=== PATIENT | female | born 1975 | race Caucasian/White ===

== ENCOUNTER 2021-01-23 11:04 | Outpatient (CLI) | payer OTHER ==
--- NOTE | 2021-01-26 13:45 | Ultrasound Report ---
LIMITED ULTRASOUND OF RIGHT BREAST AND AXILLA: 01/23/2021 CLINICAL: Focal right breast pain. Comparison is made to exams dated: 01/23/2021 mammogram - [facility], 12/02/2014 mamm ogram, and 08/20/2013 mammogram - [facility]. Color flow and real-time ultrasound of the right breast 9 o'clock, and axilla regions were performed. Young scale images of the real-time examination were reviewed. There are multiple benign oval cysts with smooth internal felix in the right breast superior lateral quadrant middle depth. These oval cysts are anechoic and hypoechoic with posterior acoustic enhancem ent. These correlate as palpated and with mammography findings. Sonographic artifacts are seen sup erimposed on the cysts. Some internal debris may be present. No significant abnormalities were seen sonographically in the right axilla. IMPRESSION: BENIGN There is no sonographic evidence of malignancy. The multiple oval cysts in the right breast are benign. The patient may elect to have the cyst aspir ated if desired for symptomatic relief. A 1 year screening mammogram is recommended. This exam was interpreted at Station ID: [id number]. Electronically Signed By: Antonio salinas/cody:01/23/2021 13:57:17 Ultrasound BI-RADS: 2 Benign BI-RADS CATEGORY: (2) - 2 RECOMMENDATION: (ANNUAL) - Recommend routine annual screening mammography. [id number] 1 year screening LATERALITY: (B)
--- NOTE | 2021-01-26 13:45 | Mammography Report ---
BILATERAL DIGITAL DIAGNOSTIC MAMMOGRAM 3D/2D: 01/23/2021 CLINICAL: Palpable right breast lump. Comparison is made to exams dated: 12/02/2014 mammogram, 08/20/2013 mammogram, and 05/23/2012 mammogram - [facility]. The tissue of both breasts is heterogeneously dense. This may lower the sensitiv ity of mammography. There is a 2.5 cm oval mass with a circumscribed margin in the right breast at 12 o'clock middle dept h. This correlates as palpated. Multiple additional benign circumscribed masses are seen in each b reast. No other significant masses, calcifications, or other findings are seen in either breast. IMPRESSION: INCOMPLETE: NEEDS ADDITIONAL IMAGING EVALUATION The 2.5 cm oval mass in the right breast resembles a cyst and is indeterminate. An ultrasound is rec ommended. This exam was interpreted at Station ID: [id number]. NOTE: For mammograms, a report in lay terms will be sent to the patient. Approximately 15% of breast malignancies will not be visualized mammographically. In the management of a palpable breast mass, a negative mammogram must not discourage biopsy of a clinically suspicious lesion. Electronically Signed By: Antonio salinas/cody:01/23/2021 13:37:47 ACR BI-RADS Category 0: Incomplete 3340F PARENCHYMAL PATTERN: (D) - The breast(s) demonstrate(s) heterogeneously dense fibroglandular [place]. BI-RADS CATEGORY: (0) - 0 Ultrasound [id number] Immediate follow-up LATERALITY: (R)
== END 2021-01-23 11:05 | disposition home or self-care (01) ==
LOC: DI 11:04
PROVIDERS: ATTEND Student in an Organized Health Care Education/Training Program
DX: N60.11 Diffuse cystic mastopathy of right breast (principal)

== ENCOUNTER 2021-02-11 13:29 | Outpatient (CLI) | payer OTHER ==
[~2021-02-11 13:29] MED LIST: BUFFERED LIDOCAINE 10 ML SYRINGE ONE
[2021-02-11] MEDS: BUFFERED LIDOCAINE 10 ML SYRINGE IU ONE (16:30)
--- NOTE | 2021-02-16 08:15 | Ultrasound Report ---
MULTIPLE ASPIRATIONS RIGHT BREAST: 02/11/2021 CLINICAL: Cyst aspiration right breast. Correlation is made to exams dated: 01/23/2021 ultrasound, 01/23/2021 mammogram - [facility], 12/02/2014 mammogram, 08/20/2013 mammogram, 05/23/2012 mammogram, and 06/22/2011 mammogram - [facility]. An aspiration was performed for the painful cyst located in the right breast at 10 o'clock middle dep th. This was described on the previous ultrasound report. The skin was prepped in the usual manner. Local anesthetic was administered to the access site. The abnormality was approached from the late ral aspect. A 20 gauge needle was percutaneously placed into the abnormality under guidance. Once t he needle was documented to be in the correct location, opaque brown fluid was aspirated. A skin adh esive was applied to the access site. The aspirated fluid was discarded. A second aspiration was performed for the painful cyst located in the right breast at 9 o'clock middl e depth. This was described on the previous ultrasound report. The skin was prepped in the usual ma nner. Local anesthetic was administered to the access site. The abnormality was approached from the craniocaudal aspect. A 20 gauge needle was percutaneously placed into the abnormality under guidanc e. Once the needle was documented to be in the correct location, opaque white fluid was aspirated. A skin adhesive was applied to the access site. The aspirated fluid was discarded. IMPRESSION: ASPIRATION Aspiration of the cyst in the right breast at 10 o'clock middle depth was successful with no apparent post procedure complications. Aspiration of the cyst in the right breast at 9 o'clock middle depth was successful with no apparent post procedure complications. Future imaging is recommended as follows: 01/24/2022 screening mammogram. This exam was interpreted at Station ID: [id number]. Kj Campbell jl/:02/15/2021 16:37:42 BI-RADS CATEGORY: () - Unspecified - other recall n/a LATERALITY: (B)
== END 2021-02-11 13:30 | disposition home or self-care (01) ==
LOC: DI 13:29
PROVIDERS: ATTEND Student in an Organized Health Care Education/Training Program
DX: R92.8 Other abnormal and inconclusive findings on diagnostic imaging of breast (principal)
CPT/HCPCS: 19000

== ENCOUNTER 2021-08-20 08:53 | Emergency (ER) | payer OTHER ==
[2021-08-20] MEDS ORDERED: ONDANSETRON 4 MG/2 ML VIAL IVP STA (09:02)
[2021-08-20] MEDS ORDERED: SODIUM CHLORIDE 0.9% 1,000 ML IV STA ×2 (09:02→10:52)
[2021-08-20] MEDS ORDERED: DROPERIDOL 5 MG/2 ML VIAL IVP STA (09:41)
[2021-08-20] MEDS ORDERED: PANTOPRAZOLE 40 MG VIAL IVP STA (09:41)
[2021-08-20] MEDS ORDERED: KETOROLAC 15 MG/ML VIAL IVP STA (09:41)
--- NOTE | 2021-08-20 09:45 | ED Physician Documentation ---
History of Present Illness - Stated complaint Stated Complaint: N/V, DIZZINESS - Chief complaint Chief Complaint: Abd Pain - History obtained from History obtained from: Patient - Additonal information Additional information: Patient comes to the emergency department with chief complaint of vomiting for the last 4 days. She states she started to feel nauseated on the first day and could not eat much, but did not have any abdominal pain. She denies any changes in her stool, either toward constipation or diarrhea. The patient states that the next day, she was very nauseated and could not hold anything down and that the nausea is continued until now, she is just having dry heaves. She states she still cannot hold even clear liquids down. She states her urine was dark yellow and she has had headache for the last couple of days and finally decided to come to the emergency department to get checked out. The patient has a history of migraines but states this feels different, just like pressure from a vice long chain beamer on her head. No neurologic symptoms. Patient denies any fevers or chills. She has not been exposed to anybody known to be sick. The patient states that her muscles feel sore in her abdomen and chest from vomiting, but she denies any specific actual "pain" in either her chest or abdomen otherwise. No other complaints at this time. Review of Systems Ten Systems: 10 systems reviewed and negative Constitutional: reports: Reviewed and negative Eyes: reports: Reviewed and negative Ears: reports: Reviewed and negative Nose: reports: Reviewed and negative Throat: reports: Reviewed and negative Cardiac: reports: Reviewed and negative Respiratory: reports: Reviewed and negative GI: reports: Nausea, Vomiting : reports: Reviewed and negative Skin: reports: Reviewed and negative Musculoskeletal: reports: Reviewed and negative Neurologic: reports: Reviewed and negative Psychiatric: reports: Reviewed and negative Endocrine: reports: Reviewed and negative Immunocompromised: reports: Reviewed and negative PD PAST MEDICAL HISTORY - Past Medical History Musculoskeletal: Osteoporosis - Present Medications Home Medications: Ambulatory Orders Medication Instructions Recorded Confirmed Dexlansoprazole [Dexilant] 60 mg PO DAILY 05/09/15 05/09/15 Esomeprazole Magnesium [Nexium] 40 mg PO DAILY 05/09/15 05/09/15 Levonorgestrel-Ethin Estradiol 1 tab PO DAILY 05/09/15 05/09/15 [Levonor-Eth Estrad 0.15-0.03] Nitrofurantoin Monohyd/M-Cryst 100 mg PO BID #10 capsule 05/09/15 [Macrobid 100 mg Capsule] Oxycodone HCl/Acetaminophen 2 tab PO Q6HR 05/09/15 05/09/15 [Percocet 10-325 mg Tablet] diazePAM [Diazepam] 5 mg PO Q6HR 05/09/15 05/09/15 Ondansetron Odt [Zofran] 4 mg TL Q6H PRN #10 tablet 08/20/21 Promethazine Supp [Phenergan Supp] 25 mg SD Q6HR PRN #12 supp 08/20/21 - Allergies Allergies/Adverse Reactions: Allergies Allergy/AdvReac Type Severity Reaction Status Date / Time bupropion HCl * Allergy Intermediate Edema Verified 08/20/21 09:06 [From Wellbutrin] - Social History Does the pt smoke?: No Smoking Status: Never smoker PD ED PE NORMAL - Vitals Vital signs reviewed: Yes - General General: Alert and oriented X 3, Well developed/nourished, Other (The patient intermittently dry heaves and appears uncomfortable, but otherwise no apparent distress) - HEENT HEENT: Atraumatic, PERRL, EOMI, Moist mucous membranes - Cardiac Cardiac: RRR, No murmur, Strong equal pulses - Respiratory Respiratory: No respiratory distress, Clear bilaterally - Abdomen Abdomen: Soft, Non tender, Non distended - Back Back: No CVA TTP - Derm Derm: Normal color, Warm and dry, No rash - Extremities Extremities: No deformity, No edema - Neuro Neuro: Alert and oriented X 3, train station agent 2-12 intact, Normal speech, Other (Grossly intact) - Psych Psych: Normal mood, Normal affect Results - Vitals Vitals: Oxygen O2 Source Room air - Labs Labs: Laboratory Tests 08/20/21 08/20/21 08/20/21 09:50 09:50 09:50 WBC 5.0 RBC 4.35 Hgb 13.5 Hct 41.7 MCV 95.9 MCH 31.0 MCHC 32.4 RDW 13.2 Plt Count 161 MPV 8.6 Neut # (Auto) 3.5 Lymph # (Auto) 0.8 L Waldo # (Auto) 0.4 Eos # (Auto) 0.3 Baso # (Auto) 0.0 Absolute Nucleated RBC 0.00 Nucleated RBC % 0.0 Sodium 136 Potassium 4.0 Chloride 99 L Carbon Dioxide 28 Anion Gap 9.0 BUN 18 Creatinine 0.8 Estimated GFR (MDRD) 77 L Glucose 110 H Calcium 7.9 L Total Bilirubin 2.6 H AST 530 H ALT 1620 H Alkaline Phosphatase 62 Total Protein 6.2 L Albumin 3.3 Globulin 2.9 Albumin/Globulin Ratio 1.1 Lipase 46 TSH Hepatitis A IgM Ab NON-REACTIVE Hep Bs Antigen NON-REACTIVE Hep B Core IgM Ab NON-REACTIVE Hepatitis C Antibody NON-REACTIVE Hep C Ab Signal/Cutoff 0.00 08/20/21 09:50 WBC RBC Hgb Hct MCV MCH MCHC RDW Plt Count MPV Neut # (Auto) Lymph # (Auto) Waldo # (Auto) Eos # (Auto) Baso # (Auto) Absolute Nucleated RBC Nucleated RBC % Sodium Potassium Chloride Carbon Dioxide Anion Gap BUN Creatinine Estimated GFR (MDRD) Glucose Calcium Total Bilirubin AST ALT Alkaline Phosphatase Total Protein Albumin Globulin Albumin/Globulin Ratio Lipase TSH 0.55 Hepatitis A IgM Ab Hep Bs Antigen Hep B Core IgM Ab Hepatitis C Antibody Hep C Ab Signal/Cutoff PD MEDICAL DECISION MAKING - ED course Complexity details: reviewed results, re-evaluated patient, considered differential, d/w patient ED course: The patient was treated symptomatically with IV fluids and initially, and Zofran. The Zofran did seem to help, so the patient was given droperidol, a small dose of Toradol, and Protonix. She was worked up with laboratory studies. Her abdomen was benign, and so I did not initially feel that she needed to have imaging studies performed. The patient was found to have significantly elevated liver enzymes, so ultrasound was performed. This did not show any gallbladder pathology. CT scan was then performed of the abdomen and pelvis, and This also did not show any further pathology. The patient was feeling much better and I discussed with her that I am not sure exactly why her liver enzymes are elevated. I have added a hepatitis panel, which is pending at this time. The patient does not have an obstructive process, so at this point in time, I do not feel that an ERCP or MRCP would be helpful. I discussed the need for her to follow-up with her primary care physician. She may have hepatitis itself or she may have some other viral process that has created a transient, lower level hepatitis and transaminitis. We have discussed the need for follow-up regardless, and the usual indications for return to the emergency department, particularly if the patient becomes febrile or jaundiced. Departure - Departure Disposition: 01 Home, Self Care Clinical Impression: Transaminitis Vomiting Qualifiers: Vomiting type: bilious vomiting Nausea presence: with nausea Qualified Code(s): R11.14 - Bilious vomiting Condition: Stable Instructions: ED Nausea Vomiting Prescriptions: Promethazine Supp [Phenergan Supp] 25 mg SD Q6HR PRN #12 supp PRN Reason: Nausea / Vomiting Ondansetron Odt [Zofran] 4 mg TL Q6H PRN #10 tablet PRN Reason: Nausea / Vomiting Comments: Your labs looked okay except that your liver labs were significantly elevated today. Extensive imaging has been done to try to determine why this might be, and no evidence of a blockage of your gallbladder or bile ducts has been found. You do not have gallstones and your gallbladder is not inflamed, so there is no acute surgical intervention that needs to be done. Your liver has chronic cysts which showed up on CT over a decade ago, and these appear stable. There may be a mild amount of infiltration of fat anterior liver, which can sometimes indicate a low level of liver stress, but this is fairly mild. A hepatitis panel has been added to your blood work today, and is pending at this time. It will not be back right away, but your primary care physician can follow-up on this. It is possible that you have contracted a gastrointestinal virus that his inflamed your liver and this can sometimes happen. In general, this flareup of liver enzymes will be temporary and will subside, once the viral illness is passed. At this point, since there is no obstructive cause of your elevated liver enzymes that has been identified, it is most likely that the elevation is coming from an issue with the liver itself. As such, your liver enzymes will need to be rechecked in about a week. I have discussed her case with Dr. Quinteros, the social insurance specialist on-call for admitted patients in the hospital, and he has stated that there is no further testing that would be done on a hospital admission at this time. As such, we will allow you to go home with a couple of different nausea medications. You have been hydrated here in the emergency department and have responded well to the medication we have given you here. Please take the next several days off of work, and call first thing upon arriving home to make an appointment to follow-up with your primary care physician next week for reevaluation. If any of your symptoms worsen, or you begin to get significantly jaundiced (turning yellow), please return for further evaluation. Discharge Date/Time: 08/20/21 14:27
[2021-08-20 10:05] LABS: BASOPHILS % (AUTO) 0.4 %; EOSINOPHILS # (AUTO) 0.3 10^3/uL (0.0-0.7); EOSINOPHILS % (AUTO) 5.2 %; HCT - HEMATOCRIT 41.7 % (37.0-47.0); HGB - HEMOGLOBIN 13.5 g/dL (12.0-16.0); LYMPHOCYTES # (AUTO) 0.8 10^3/uL (1.5-3.5); LYMPHOCYTES % (AUTO) 15.9 %; MEAN CORPUSCULAR HGB CONC 32.4 g/dL (32.0-36.0); MEAN CORPUSCULAR VOLUME 95.9 fL (81.0-99.0); MEAN PLATELET VOLUME 8.6 fL (7.9-10.8); MONOCYTES # (AUTO) 0.4 10^3/uL (0.0-1.0); MONOCYTES % (AUTO) 7.8 %; NEUTROPHILS # (AUTO) 3.5 10^3/uL (1.5-6.6); NEUTROPHILS % (AUTO) 70.3 %; PLT - PLATELET COUNT 161 10^3/uL (130-450); RED BLOOD COUNT 4.35 10^6/uL (4.20-5.40); RED CELL DISTRIBUTION WIDTH 13.2 % (12.0-15.0)
[2021-08-20 10:25] LABS: ALBUMIN 3.3 g/dL (3.2-5.5); ALBUMIN/GLOBULIN RATIO 1.1 (1.0-2.2); BILIRUBIN,TOTAL 2.6 mg/dL (0.2-1.0); CALCIUM 7.9 mg/dL (8.5-10.3); CREATININE 0.8 mg/dL (0.4-1.0); TOTAL PROTEIN 6.2 g/dL (6.7-8.2)
[2021-08-20] MEDS ORDERED: iohexoL-300 100 ML VIAL ONE (12:16)
--- NOTE | 2021-08-20 12:39 | Ultrasound Report ---
PROCEDURE: Abdomen Limited INDICATIONS: elevated LFTs, vomiting TECHNIQUE: Real-time focused scanning was performed of the abdomen, with image documentation. COMPARISON: None FINDINGS: Liver is normal in size. Liver has mildly coarse echotexture. Multiple hepatic cysts are noted. Large st cyst in the right lobe measures 1.8 x 1.7 x 1.5 cm. Largest cyst in left lobe measures 1.9 x 1.3 x 1.2 cm. Gallbladder sonographically normal. No gallstones. Gallbladder wall measures 1.8 mm. No pericholecyst ic fluid. No sonographic Armstrong's sign. Biliary tree is nondilated. Common bile duct measures 5.8 mm. Pancreas is sonographically normal. Right kidney is sonographically normal. IMPRESSION: 1. Mildly echogenic liver. Finding typically represents fatty infiltration, however the finding is no nspecific and other etiologies including hepatic cirrhosis compared to similar appearance. Recommend correlation with clinical and laboratory data. 2. Multiple hepatic cysts. Reviewed by: Mily Helton MD, PhD on 08/20/2021 11:29 AM [facility] Approved by: Mily Helton MD, PhD on 08/20/2021 11:29 AM [facility] Station ID: [id number]
--- NOTE | 2021-08-20 13:01 | CT Report ---
PROCEDURE: ABDOMEN/PELVIS W INDICATIONS: vomiting x 4 days, elev LFTs PRIORS: None CONTRAST: Iohexol, 100 mL TECHNIQUE: After the administration of intravenous contrast, 5 mm thick sections acquired from the diaphragms to the symphysis. 5 mm thick coronal and sagittal reformats were acquired. For radiation dose reducti on, the following was used: automated exposure control, adjustment of mA and/or kV according to trey ent size. COMPARISON: None FINDINGS: Image quality: Excellent. ABDOMEN: Lung bases: Lung bases are clear. Heart size is normal. Solid organs: There are numerable tiny low-density lesions throughout the liver, likely representing a cysts versus hemangiomata. No obvious solid masses are identified. Spleen is unremarkable. Gallblad brenda is submaximally distended. There may be gallbladder wall edema or fluid around the gallbladder. Biliary system is non dilated. Pancreas enhances normally. No adrenal nodules. Kidneys demonstrate normal size and enhancement, without hydronephrosis. Peritoneum and bowel: Bowel loops demonstrate normal wall thickness and caliber. No free fluid or a ir. Nodes and vessels: No retroperitoneal or mesenteric adenopathy by size criteria. Aorta and inferior vena cava are normal in size. Incidental note is made of the presence of a dilated left gonadal vei n left gonadal vein reflux and paraovarian varicosities. Miscellaneous: No ventral hernias. PELVIS: Genitourinary: Bladder wall thickness is normal. Miscellaneous: No inguinal hernias or adenopathy. Bones: No suspicious bony lesions. No vertebral body compression fractures. IMPRESSION: 1. Innumerable low-density liver lesions most likely represent cysts versus hemangiomata. 2. Question gallbladder wall edema or some fluid around the gallbladder. 3. 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 Comment: Recommend right upper quadrant ultrasound further evaluate the liver and gallbladder. Additional comment: In the correct clinical setting, the left canal vein reflux with paraovarian vari cosities can support a clinical diagnosis of chronic pelvic venous congestion syndrome. Reviewed by: Edward Guan MD on 08/20/2021 12:51 PM PST Approved by: Edward Guan MD on 08/20/2021 12:51 PM PST Station ID: [id number]
[2021-08-20] MEDS ORDERED: iohexoL-300 100 ML VIAL IVP ONE (13:36)
[2021-08-20 14:28] VITALS: BP 99/71
[2021-08-21 11:41] LABS: HEPATITIS A IGM NON-REACTIVE (NON-REACTIVE); HEPATITIS B CORE ANTIBODY IGM NON-REACTIVE (NON-REACTIVE); HEPATITIS B SURFACE ANTIGEN NON-REACTIVE (NON-REACTIVE); HEPATITIS C ANTIBODY NON-REACTIVE (NON-REACTIVE)
== END 2021-08-20 14:27 | disposition home or self-care (01) ==
LOC: ED 08:53
DX: R74.01 Elevation of levels of liver transaminase levels (principal); R11.14 Bilious vomiting; R74.8 Abnormal levels of other serum enzymes
CPT/HCPCS: 36415; 74177; 76705; 80053; 80074; 83690; 84443; 85025; 96374; 96375; 99284; Q9967

== ENCOUNTER 2022-08-09 15:48 | Emergency (ER) | payer OTHER ==
--- NOTE | 2022-08-09 16:35 | XRAY Report ---
PROCEDURE: Chest 2 View X-Ray INDICATIONS: cough TECHNIQUE: 2 views of the chest were acquired. COMPARISON: None FINDINGS: Surgical changes and devices: None. Lungs and pleura: No pleural effusions or pneumothorax. Lungs are clear. Mediastinum: Mediastinal contours are normal. Heart size is normal. Bones and chest wall: No suspicious bony abnormalities. Soft tissues appear unremarkable. IMPRESSION: No acute cardiopulmonary pathology. Reviewed by: Kj Campbell MD on 08/09/2022 4:34 PM [facility] Approved by: Kj Campbell MD on 08/09/2022 4:34 PM PST Station ID: [id number]
[2022-08-09] MEDS ORDERED: oxyCODONE 5 MG TABLET PO STA (17:21)
--- NOTE | 2022-08-09 17:37 | ED Physician Documentation ---
History of Present Illness - Stated complaint Stated Complaint: + C - Chief complaint Chief Complaint: Resp - Additonal information Additional information: 47-year-old female presents emergency department for evaluation of body aches, cough, fatigue subjective fevers sore throat. She reports that she tested positive for COVID 5 to 6 days ago. She took another COVID test today and remains positive. She has been taken Motrin as well as her usual medications to treat the symptoms but feels that she is not getting better. She also has a history of a migraine and has developed a migraine headache today. She is vaccinated though not boosted for COVID Review of Systems Constitutional: reports: Fever, Myalgias, Fatigue Nose: reports: Rhinorrhea / runny nose, Congestion Throat: reports: Sore throat Cardiac: denies: Chest pain / pressure, Palpitations, Pedal edema Respiratory: reports: Dyspnea. denies: Cough, Hemoptysis, Wheezing GI: reports: Reviewed and negative : reports: Reviewed and negative PD PAST MEDICAL HISTORY - Past Medical History Musculoskeletal: Osteoporosis - Present Medications Home Medications: Ambulatory Orders Medication Instructions Recorded Confirmed Dexlansoprazole [Dexilant] 60 mg PO DAILY 05/09/15 05/09/15 Esomeprazole Magnesium [Nexium] 40 mg PO DAILY 05/09/15 05/09/15 Levonorgestrel-Ethin Estradiol 1 tab PO DAILY 05/09/15 05/09/15 [Levonor-Eth Estrad 0.15-0.03] Nitrofurantoin Monohyd/M-Cryst 100 mg PO BID #10 capsule 05/09/15 [Macrobid 100 mg Capsule] Oxycodone HCl/Acetaminophen 2 tab PO Q6HR 05/09/15 05/09/15 [Percocet 10-325 mg Tablet] diazePAM [Diazepam] 5 mg PO Q6HR 05/09/15 05/09/15 Ondansetron Odt [Zofran] 4 mg TL Q6H PRN #10 tablet 08/20/21 Promethazine Supp [Phenergan Supp] 25 mg WI Q6HR PRN #12 supp 08/20/21 - Allergies Allergies/Adverse Reactions: Allergies Allergy/AdvReac Type Severity Reaction Status Date / Time bupropion HCl * Allergy Intermediate Edema Verified 08/09/22 16:05 [From Wellbutrin] - Social History Does the pt smoke?: No Smoking Status: Never smoker PD ED PE NORMAL - General General: Alert and oriented X 3, No acute distress, Well developed/nourished - HEENT HEENT: Atraumatic, Ears normal, Moist mucous membranes, Pharynx benign - Neck Neck: Supple, no meningeal sign, No adenopathy - Cardiac Cardiac: RRR, No murmur - Respiratory Respiratory: No respiratory distress, Clear bilaterally - Abdomen Abdomen: Normal bowel sounds, Soft - Back Back: No CVA TTP, No spinal TTP - Derm Derm: Normal color, Warm and dry, No rash - Extremities Extremities: No deformity, No tenderness to palpate, Normal ROM s pain - Neuro Neuro: Alert and oriented X 3, gear roller 2-12 intact Eye Opening: Spontaneous Motor: Obeys Commands Verbal: Oriented GCS Score: 15 Results - Vitals Vitals: Vital Signs - 24 hr 08/09/22 08/09/22 16:07 16:49 Temperature 36.6 C Heart Rate 110 H 90 Respiratory 20 16 Rate Blood Pressure 127/88 H 126/88 H O2 Saturation 98 100 Oxygen O2 Source Room air - Rads (name of study) cxr Radiology: Final report received (No acute cardiopulmonary process) PD Medical Decision Making - ED course Complexity details: reviewed results, re-evaluated patient, considered differential, d/w patient ED course: 47-year-old female presents emergency department for constellation of symptoms including cough, body aches fatigue sore throat and headache. She has tested positive for COVID a little more than 5 days ago. Patient reports taking a multitude of [id number] medications without relief of symptoms. She also has a history of significant depression and anxiety. A chest x-ray completed today shows no acute focal findings suggest pneumonia, pleural effusion or pneumothorax. ENT exam was also unremarkable at the bedside. I discussed with the patient that given the duration of symptoms she is outside the window for consideration of oral antiviral therapy i.e. Paxlovid or Molnupiravir. Given an unremarkable cardiopulmonary exam and negative chest x-ray imaging patient was most bothered by her sore throat which she admits is chronic. She was given one-time dose of oxycodone here in the emergency department but none was levied on discharge. She is advised very close follow-up with her PCP. Emergent return precautions were discussed for worsening symptoms. Departure - Departure Disposition: 01 Home, Self Care Clinical Impression: COVID-19 Condition: Stable Record reviewed to determine appropriate education?: Yes Instructions: ED Viral Syndrome Comments: Ariela rosenberg came to the emergency department because for about 5 days you have been having cough congestion fevers myalgias sore throat body aches headache. You have tested positive for COVID-19. You are outside the window of treatment for consideration of an oral antiviral medication like Paxlovid or Molnupiravir. 9 however today in the emergency department your chest x-ray was normal. The exam of your heart lungs ears nose and throat was also normal. I expect that you will feel generally fatigued and tired for the better part of the next week. You can continue to take your usual medications. I recommend that you only take 600 Motrin and always take it with food to prevent gastric upset. 9 reasons to return to the emergency department would be the development of any new fevers higher than 101, severe chest pain or shortness of air or if you have very low oxygen levels at home.
[2022-08-09 18:44] VITALS: BP 109/86
== END 2022-08-09 18:44 | disposition home or self-care (01) ==
LOC: ED 15:48
DX: U07.1 COVID-19 (principal)
CPT/HCPCS: 71046; 99283; A9270

== ENCOUNTER 2023-03-22 08:00 | Outpatient (CLI) | payer OTHER | END 2023-03-22 23:59 | disposition home or self-care (01) | LOC: LAB.N 08:00 | PROVIDERS: ATTEND Specialist | DX: R30.0 Dysuria (principal) | CPT/HCPCS: 87086 ==